=== PATIENT | male | born 1950 | race Caucasian/White ===

== ENCOUNTER 2017-06-26 11:12 | Emergency (ER) | payer OTHER ==
[~2017-06-26] VITALS: Ht 165.1 cm; Wt 133.5 kg
[~2017-06-26 11:12] MED LIST: ALL100 PO; ASPEC81 PO; CLC100 PO; CMBIN INH; ERGO1TAB12 PO; FLUT1AER5 INH; FURO80TA63 PO; GFNSR600 PO; INSDGI SC; LEVO1TAB33 PO; METO25TA3 PO; PANT40TA PO; RANI300T2 PO
[2017-06-26 11:27] VITALS: TEMP 36.4; Ht 165.1 cm; Wt 133.5 kg
[2017-06-26] MEDS ORDERED: DOXY100C76 PO (11:49)
[2017-06-26] MEDS ORDERED: ALLO300T2 PO (11:49)
[2017-06-26] MEDS ORDERED: ERGO500037 PO (11:49)
[2017-06-26] MEDS ORDERED: ACET-1311 PO (11:49)
[2017-06-26] MEDS ORDERED: LEVO1TAB33 PO (11:49)
[2017-06-26] MEDS ORDERED: test strips (11:49)
[2017-06-26] MEDS ORDERED: FURO80TA63 PO (11:49)
[2017-06-26] MEDS ORDERED: SENN-61 PO (11:49)
[2017-06-26] MEDS ORDERED: RANI300T PO (11:49)
[2017-06-26] MEDS ORDERED: TPRSR/25 (11:49)
[2017-06-26] MEDS ORDERED: ASPI81TA28 PO (11:49)
[2017-06-26] MEDS ORDERED: FLUT0.15 (11:49)
[2017-06-26] MEDS ORDERED: DOCU-94 PO (11:49)
[2017-06-26] MEDS ORDERED: CLR10 PO (11:49)
[2017-06-26] MEDS ORDERED: CEPH500C2 PO (11:49)
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
[2017-06-26] MEDS ORDERED: OXYCODONE/ACETAMINOPHEN 5-325 TAB PO ONE (12:30)
--- NOTE | 2017-06-26 12:54 | DIAGNOSTIC IMAGING REPORT ---
L KNEE 1 OR 2 VIEWS ROUTINE CLINICAL HISTORY: Left knee pain status post trauma COMPARISON: None. DISCUSSION: The bones are osteopenic. No acute fractures are visualized. There are moderately advanced osteoarthritic changes present with marked lateral joint compartment narrowing. There is a suspected small joint effusion. There are small patellar spurs. IMPRESSION: 1. No acute fractures 2. Osteopenia 3. Moderately advanced arthritic change 4. Suspected small joint effusion Electronically signed by: Marco Antonio Dodson M.D. 06/26/2017 12:53 PM Dictated Date/Time: 06/26/2017 12:52 PM
--- NOTE | 2017-06-26 12:55 | DIAGNOSTIC IMAGING REPORT ---
L FOOT MIN 3 VIEWS ROUTINE CLINICAL HISTORY: Left foot pain status post trauma COMPARISON: None. DISCUSSION: The bones are symmetrically osteopenic. There is an old healed fifth metatarsal fracture. No acute fractures are visualized. There is a plantar calcaneal spur. There are postsurgical changes involving the ankle. There is dorsal soft tissue swelling. IMPRESSION: 1. Postsurgical changes involving the ankle 2. Old fifth metatarsal fracture 3. Osteopenia 4. No acute fractures or dislocations are visualized 5. Dorsal soft tissue swelling Electronically signed by: Marco Antonio Dodson M.D. 06/26/2017 12:54 PM Dictated Date/Time: 06/26/2017 12:53 PM
[2017-06-26 17:37] VITALS: BP 121/72; PULSE 98; O2SAT 98
== END 2017-06-26 17:50 | disposition home or self-care (01) ==
LOC: EDBD 11:12 → C.EDC 11:14
DX: M25.562 Pain in left knee (principal); W18.49XA Other slipping, tripping and stumbling without falling, initial encounter; R60.0 Localized edema; J44.9 Chronic obstructive pulmonary disease, unspecified; Z87.828 Personal history of other (healed) physical injury and trauma; Z87.891 Personal history of nicotine dependence; Z79.82 Long term (current) use of aspirin; Z99.81 Dependence on supplemental oxygen